=== PATIENT | male | born 1950 | race Caucasian/White ===

== ENCOUNTER 2020-10-04 22:46 | Emergency (ER) | payer MEDICARE, BC ==
[~2020-10-04] VITALS: Ht 177.8 cm; Wt 86.2 kg
--- NOTE | 2020-10-04 23:00 | NUR ---
BIBSELF C/O ABDOMINAL CRAMPING AND CONSTIPATION. PT AAOX4. VITAL SIGNS STABLE. AMBULATORY WITH STEADY GAIT. NO ACUTE DISTRESS NOTED AT THIS TIME
--- NOTE | 2020-10-04 23:30 | NUR ---
RADIOLOGY AT BEDSIDE FOR XRAY
[2020-10-05] MEDS ORDERED: MINERAL OIL 133 ML (PYXIS) 1 EA ENEMA RC ONE ×2 (00:05)
[2020-10-05] MEDS ORDERED: DOCU-141 PO (01:24)
[2020-10-05] MEDS ORDERED: MAGNESIUM CITRATE 296 ML BOTTLE ONE (01:26)
[2020-10-05] MEDS ORDERED: MAGNESIUM CITRATE 296 ML BOTTLE PO ONE (01:30)
[2020-10-05 01:39] VITALS: BP 134/79
--- NOTE | 2020-10-05 01:39 | NUR ---
Patient discharged to home in stable condition. Written and verbal after care instructions given. Patient verbalizes understanding of instruction.Pt ambulatory with a steady gait
== END 2020-10-05 01:40 | disposition home or self-care (01) ==
LOC: ER 22:48
DX: K59.00 Constipation, unspecified (principal)
CPT/HCPCS: 74018